=== PATIENT | female | born 1955 | race Caucasian/White ===

== ENCOUNTER 2018-02-17 15:25 | Emergency (ER) | payer OTHER ==
[2018-02-17] MEDS ORDERED: FAMOTIDINE 20 MG/2 ML VIAL IV STA (15:29)
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
--- NOTE | 2018-02-17 15:53 | XR ---
EXAMINATION TYPE: XR chest 2V DATE OF EXAM: 02/17/2018 COMPARISON: NONE HISTORY: Allergic reaction. Throat swelling. TECHNIQUE: Frontal and lateral views of the chest are obtained. FINDINGS: There is no focal air space opacity, pleural effusion, or pneumothorax seen. The cardiac silhouette size is within normal limits. The osseous structures are intact. IMPRESSION: No acute cardiopulmonary process.
--- NOTE | 2018-02-17 15:55 | XR ---
EXAMINATION TYPE: XR soft tissue neck DATE OF EXAM: 02/17/2018 COMPARISON: NONE HISTORY: Throat swelling. Allergic reaction. TECHNIQUE: Frontal and lateral views of the soft tissues of the neck were obtained. FINDINGS: The supraglottic airway and infraglottic airway appear patent. Epiglottis is slightly bulbo us although is nonocclusive. No prevertebral soft tissue swelling is seen. Grade 1 anterolisthesis of C3 on C4 is present with multilevel degenerative disc disease is displayed is anterior osteophytes, intervertebral disc space narrowing, endplate sclerosis and facet arthropathy. Uncovertebral hypertro phy is also seen at multiple levels on the frontal view. Lung apices are well aerated. No radiopaque foreign body is present. IMPRESSION: Patency of the supraglottic and infraglottic airway. No radiopaque foreign body.
[2018-02-17 16:48] VITALS: BP 137/65; PULSE 67; RESP 18; TEMP 97.8
== END 2018-02-17 16:46 | disposition home or self-care (01) ==
LOC: EC 15:25
DX: T78.3XXA Angioneurotic edema, initial encounter (principal); I10 Essential (primary) hypertension; F32.9 Major depressive disorder, single episode, unspecified; D41.9 Neoplasm of uncertain behavior of unspecified urinary organ; F17.200 Nicotine dependence, unspecified, uncomplicated; Z79.84 Long term (current) use of oral hypoglycemic drugs; Z79.899 Other long term (current) drug therapy; Z88.5 Allergy status to narcotic agent; Z88.8 Allergy status to other drugs, medicaments and biological substances; Z91.013 Allergy to seafood
CPT/HCPCS: 70360; 71046; 96374; 99284